=== PATIENT | female | born 1985 | race Caucasian/White ===

== ENCOUNTER → 2016-06-03 | Outpatient (CLI) | payer OTHER ==
--- NOTE | 2016-06-03 10:45 | US ---
June 03, [address] Bowden, Thank you for requesting consultation and a follow up ultrasound for your patient, Mrs. Era cardoso. As you know, Eli is a 31 year old G 2, P 1001 . Her due date is 08/05/16 by prior ultrasou nd. Her current gestational age based on this dating is is 31 weeks 0 days. She is seen today for a follow up ultrasound for Zika surveillance. She has had reassuring sonograms to date with negative serologic testing. ULTRASOUND Number of fetuses: 1 Placental location: Posterior presentation: Cephalic Heart Rate: 158 bpm Cervix: 4.5 cm viewed transabdominally Maximum Vertical Pocket: 5.6 cm Measurements: Biparietal diameter: 79 mm 31 weeks, 6 days Head circumference: 296 mm 32 weeks, 5 days Abdominal circumference: 266 mm 30 weeks, 5 days Femur length: 58 mm 30 weeks, 4 days Humerus length: 51 mm 29 weeks, 6 days Transcerebellar diameter: 38 mm 31 weeks, 2 days Average age by ultrasound: 31 weeks, 4 days Estimated weight: 1660 gm weight percentile: 34 % ANATOMY anatomy was previously assessed. Today the following structures were visualized and appeared n ormal: Profile, lip/nose views, cavum septum pellucidum, cerebellum, lateral ventricle, limited view s of the heart, stomach, bilateral kidneys, and bladder. IMPRESSION: 1. Intrauterine at 31 weeks, 0 days; SHARAN of 08/05/16. 2. growth is appropriate size for dates. 3. anatomy was previously assessed and today's ultrasound continues to provide reassurance of normal appearing anatomy. 4. Normal amniotic fluid volume RECOMMENDATIONS: I was pleased to review today's ultrasound with your patient. I reassured her that growth is normal at the 34 %ile for this gestational age. The amniotic fluid volume is normal. We performed a review of the anatomy which was limited by gestational age and position, but no overt abnormali ties were noted. Specifically, the biometry for the head and the appearance of the intracrania l structures remain normal. Given her reassuring testing to date and the normal serologic studies, I will leave future ultrasound surveillance to your discretion. Thank you for allowing us the opportunity to evaluate your patient. Should you have any further ques tions or concerns please do not hesitate to contact me. Approximately 15 minutes were spent with the patient and 10 minutes were spent in face to face consu ltation. Nafisa Walter MD Licensed Massage Practitioner Maternal Medicine Diagnosis Department of Obstetrics & Gynecology [facility]
--- NOTE | 2016-06-03 12:15 | US ---
Obstetric Ultrasound History: 31-year-old with estimated gestational age of 31 weeks 0 days and EDC of August 05, 2016, Zik a exposure. Comparison: OB ultrasound April 25, 2016. Findings: Number: 1 Presentation: Vertex Placental location: Posterior. No previa. Cervix: Closed, measuring 4.5 cm transabdominally Maximum vertical pocket: 5.6 cm Biometry: Biparietal diameter: 79 mm 31 weeks, 6 days Head circumference: 296 mm 32 weeks, 5 days Abdominal circumference: 266 mm 30 weeks, 5 days Femur length: 58 mm 30 weeks, 4 days Humerus length: 51 mm 29 weeks, 6 days Transcerebellar diameter: 38 mm 31 weeks, 2 days Average ultrasound age: 31 weeks, 4 days EDC based on today's average ultrasound age: August 01, 2016 Estimated weight is 1660 gms +/- 242 gms. The estimated weight percentile is 34 % based o n previous dating. Detailed anatomic survey was previously performed and is not repeated. heart rate is 158. The lateral ventricle, posterior fossa, four-chamber heart, outflow tracts, left-sided stomach, kid neys, and bladder are visualized and normal. Impression: 1. Living rojas . Size concordant with dates. 2. Unremarkable anatomy. Please see separate dictation for consultation performed by Nafisa Walter MD, the same day.
== END ==
LOC: FIMAGING 09:04
PROVIDERS: ATTEND Obstetrics & Gynecology
DX: Z03.79 Encounter for other suspected maternal and fetal conditions ruled out (principal); Z3A.31 31 weeks gestation of pregnancy

== ENCOUNTER → 2016-07-02 | Outpatient (CLI) | payer OTHER | LOC: FIMAGING 08:58 | PROVIDERS: ATTEND Obstetrics & Gynecology | DX: Z34.83 Encounter for supervision of other normal pregnancy, third trimester (principal); Z3A.35 35 weeks gestation of pregnancy; Z20.828 Contact with and (suspected) exposure to other viral communicable diseases ==

== ENCOUNTER 2016-08-04 20:00 | Inpatient (IN) | payer OTHER ==
--- NOTE | 2016-08-04 20:26 | PDGENHP ---
History and Physical - Chief Complaint contractions - History of Present Illness at 39w6d here for contractions. Initially started this AM, every 30 minutes , now every 4-5 minutes, painful. No LOF. Active baby. No VB. complicated by: THOM BURRELL [id number] 07/31/2016 08:29 AM Page: 05/14 Genetic screening Sequential screen negative, NT US normal. CF negative last . Travel to [place] Zika screening (DELIO) for patient was negative; 's screening negative. - Plan growth q4 weeks until delivery - normal 06/03/16 RH negative Rhogam given 05/22/16. Vaccines Flu shot given 02/19/16. Tdap given 06/07/16. Anemia HCT 32, repeat stable; RX iron 2x/day, folic acid, vit C Labor Plans natural labor or nitrous; delayed cord clamping. Labs notable for Rh neg, s/p Rhogam, HIV/HepB/RPR NR, GBS neg, urine cx neg, GC/ CT neg, Glucola = 102, Hgb = 12.5, plts 177K History Information - Allergies/Home Medication List Allergies/Adverse Reactions: No Known Allergies Allergy (Unverified 09/27/14 20:15) Home Medications: Sertraline HCl 09/27/14 [Last Taken Unknown] I have personally reviewed and updated: family history, medical history, social history, surgical history - Past Medical History no pertinent PMH Additional medical history: depression: currently stable off meds - Surgical History Reports: no pertinent surgical hx - Family History Positive for: non-pertinent - Social History Smoking Status: Never smoked Alcohol Use: None Drug Use: None Additional social history: here with her mom and her Ac. Prior baby 3.5 years old, born in [place] Review of Systems ROS: 10pt was reviewed & negative except for what was stated in HPI & below Physical Exam Physical Exam: 120/76, 76, 36.4 Gen: NAD, alert, awake Resp: unlabored CV: Reg rate Abd: gravid, soft, nontender, EFW 8# (last baby 7.5#) Ext: no edema SVE 4/60/-3/vtx/posterior/intact --> 2 hours later 7/70/-2/intact FHR baseline 140, mod alfonso, + accel, no decel [place]: q5 minutes Assessment & Plan Assessment: Active labor GBS neg status reassuring she is hoping for unmedicated delivery Plan: Expectant management Routine intrapartum care Plan Man CHAPMAN for intermittent monitoring Monitor closely for depression, will discuss restarting medication
[2016-08-04] MEDS ORDERED: LR 1,000 ML IV PRN (22:07)
[2016-08-04] MEDS ORDERED: LIDOCAINE 1% 30 ML SDV SC PRN (22:07)
[2016-08-04] MEDS ORDERED: OXYTOCIN/RINGERS LACTATE 1,000 ML IV PRN (22:07)
[2016-08-04] MEDS ORDERED: TERBUTALINE SULFATE 1 MG/ML VIAL IV PRN (22:07)
[2016-08-04] MEDS ORDERED: EPSOM SALT 454 GM TP PRN (22:07)
[2016-08-04] MEDS ORDERED: OLIVE OIL 118 ML BTL MISC PRN (22:07)
[2016-08-04 22:30] LABS: % IMMATURE GRANULYOCYTES 0.6 % (0.0-1.1); ABSOLUTE IMMATURE GRANULOCYTES 0.07 10^3/uL (0.00-0.10); ADD DIFF? NO; ADD MORPH? NO; ADD SCAN? NO; ATYPICAL LYMPHOCYTE FLAG 0 (0-99); FRAGMENT RBC FLAG 0 (0-99); HEMATOCRIT 36.9 % (38.0-47.0); HEMOGLOBIN 13.1 g/dL (12.6-16.3); LEFT SHIFT FLG 0 (0-99); LIPEMIA HEMOLYSIS FLAG 90 (0-99); MEAN CELL HEMOGLOBIN CONCENTR. 35.5 g/dL (32.4-36.7); MEAN CELL VOLUME 92.9 fL (81.5-99.8); PLATELET CLUMPS FLAG 0 (0-99); PLATELET COUNT 184 10^3/uL (150-400); RED BLOOD CELL COUNT 3.97 10^6/uL (4.18-5.33); RED CELL DISTRIBUTION WIDTH 12.7 % (11.5-15.2)
[2016-08-04] MEDS ORDERED: fentaNYL 2MCG/ML/BUP 0.1% RTU 100 ML BAG EP ONE (22:49)
[2016-08-04] MEDS ORDERED: fentaNYL 100 MCG/2 ML INJ ONE (22:49)
[2016-08-04] MEDS ORDERED: BUPIVACAINE 0.25% 30 ML SDV ONE (22:50)
[2016-08-04] MEDS ORDERED: PHENYLEPHRINE HCL 100 MCG/ML SYR ONE (22:50)
--- NOTE | 2016-08-05 00:01 | OBPROG ---
OBG Progress Note Assessment/Plan: Assessment: Active labor status reassuring Plan: Expectant management Plan 08/04/16 23:59 Subjective: More comfortable with epidural Objective: 08/04/16 22:15 VSS in tracevue Resting - SVE Dilation (cm): 9 Effacement (%): 100 Station: -1 Current Contraction Pattern: Regular FHR (bpm): 150 (tachycardia to 180s while epidural was being placed) FHR Pattern Variability: Moderate, Marked FHR Category: 1 Membranes: Intact ICD10 Worksheet Patient Problems: Problems Problem Status Onset Active labor at term Acute - ICD10 Problem Qualifiers (1) Active labor at term
[2016-08-05] MEDS ORDERED: NALOXONE HCL 0.4 MG/ML INJ IVP PRN (01:02)
[2016-08-05] MEDS ORDERED: PHENYLEPHRINE HCL 100 MCG/ML SYR IVP PRN (01:02)
--- NOTE | 2016-08-05 01:02 | PREANESOB ---
Obstetric Pre-Anesthesia Info - General Info Proposed Procedure: PARAM : 2 Para: 1 - Info Status: Full Term - Labor Status Cervical Dilation per last OB SVE: 9 Station per last OB SVE: -1 PIH: No Magnesium Sulfate in Use: No Indications for Labor Analgesia: Pain Control Labor Epidural: Yes Anesthesia Allergies/Adverse Reactions: Allergy/AdvReac Type Severity Reaction Status Date / Time No Known Allergies Allergy Unverified 09/27/14 20:15 Home Medications: Medication Instructions Recorded Sertraline HCl 09/27/14 Visit Medications: Generic Name Dose Route Start Last Admin Trade Name Freq PRN Reason Stop Dose Admin Lactated Ringer's 1,000 mls @ 0 mls/hr 08/04/16 22:07 Lr IV 01/31/17 22:06 PRN PRN SEE PROTOCOL CONDITIONS Protocol Per Protocol Oxytocin/Lactated Ringer's 1,000 mls @ 150 mls/hr 08/04/16 22:07 Pitocin 20 Units/Lr (Premix) IV PRN PRN Post- bleeding Ibuprofen 600 mg 08/04/16 22:07 Motrin PO 01/31/17 22:06 Q6HRS PRN post , inflammation Lidocaine HCl 30 ml 08/04/16 22:07 Lidocaine Hcl 1% SC 01/31/17 22:06 ONCE PRN Episiotomy Magnesium Sulfate 454 gm 08/04/16 22:07 Epsom Salt TP 01/31/17 22:06 PRN PRN perineal discomfort [place] Oil 118 ml 08/04/16 22:07 Sweet Oil MISC 01/31/17 22:06 ONCE PRN preneal massage Terbutaline Sulfate 0.25 mg 08/04/16 22:07 Brethine IV 01/31/17 22:06 ONCE PRN Tachysystole Discontinued Medications Generic Name Dose Route Start Last Admin Trade Name Freq PRN Reason Stop Dose Admin Bupivacaine HCl Confirm 08/04/16 22:50 Sensorcaine 0.25% Sdv Administered 08/04/16 22:51 Dose 30 ml .ROUTE .STK-MED ONE Fentanyl Confirm 08/04/16 22:49 Sublimaze Administered 08/04/16 22:50 Dose 100 mcg .ROUTE .STK-MED ONE Fentanyl/Bupivacaine HCl Confirm 08/04/16 22:49 Fentanyl/Bupivacaine/Ns 2 Mcg/Ml 0.1% (Premix Administered 08/04/16 22:50 Dose 100 ml EP .STK-MED ONE Phenylephrine HCl Confirm 08/04/16 22:50 Junior-Synephrine Administered 08/04/16 22:51 Dose 1,000 mcg .ROUTE .STK-MED ONE - Focused Exam Height/Weight (Nursing): Height 162.56 cm Weight 76.657 kg Labs: 08/04/16 22:15
[2016-08-05] MEDS ORDERED: LR 500 ML IV SCH (01:30)
[2016-08-05] MEDS ORDERED: fentaNYL 2MCG/ML/BUP 0.1% RTU 100 ML EP SCH (01:30)
--- NOTE | 2016-08-05 02:00 | OBPROG ---
OBG Progress Note Assessment/Plan: Assessment: Active labor AROM performed as no change in last 2 hours, clear fluid status reassuring Plan: Expectant management Start pushing soon Plan 08/04/16 23:59 08/05/16 01:59 Subjective: comfortable. not feeling pressure. OK with AROM Objective: 08/04/16 22:15 - SVE Dilation (cm): 9 Effacement (%): 100 Station: 0 Current Contraction Pattern: Regular FHR (bpm): 140 FHR Pattern Variability: Moderate FHR Category: 1 Membranes: AROM Amniotic Fluid Color: Clear ICD10 Worksheet Patient Problems: Problems Problem Status Onset Active labor at term Acute - ICD10 Problem Qualifiers (1) Active labor at term
--- NOTE | 2016-08-05 04:00 | OBPROC ---
- Labor and Delivery Onset of Contractions Date: 08/04/16 Onset of Contractions Type: Spontaneous Rupture of Membranes Date: 08/05/16 Rupture of Membranes Type: Artificial Amniotic Fluid Color: Clear Delivery Type: Spontaneous Placenta Delivery Date: 08/05/16 Episiotomy/Laceration: 2nd Degree Repair: 3-0 Complications: None - Medications Labor Augmentation/Induction Meds Used: None Anesthesia: Epidural - [place] Info Infant A Delivery Date: 08/05/16 Delivery Time: Sex of Infant: Female Score (1 Min): 9 Score (5 Min): 9 (AROM completed at 9 cm, clear fluid. Pt then felt pressure to push shortly thereafter, pushed for about 15 minutes and delivered a viable female in [place] presentation with compound posterior hand. No nuchal cord. Baby placed onto maternal abdomen. Delayed cord clamping x 3 minutes. Cord doubly clamped and cut by dad. IV pitocin 20 units started. Placenta delivered spontaneously with massage. Fundus firm. Small 2nd degree laceration repaired with 3-0 vicryl. Mom and baby in good condition, skin to skin, )
[2016-08-05] MEDS: IBUPROFEN 600 MG TAB PO PRN ×4 (04:05→21:49)
[2016-08-05] MEDS ORDERED: SIMETHICONE 80 MG TAB CHEW PO PRN (06:43)
[2016-08-05] MEDS ORDERED: HYDROCODONE/APAP 5/325 TAB PO PRN (06:43)
[2016-08-05] MEDS ORDERED: HYDROCORTISONE 0.5% CREAM TP PRN (06:43)
[2016-08-05] MEDS: DOCUSATE SODIUM 100 MG CAP PO PRN (09:56)
[2016-08-05 15:42] VITALS: RESP 16
[2016-08-06] MEDS: IBUPROFEN 600 MG TAB PO PRN ×3 (03:27→19:17)
--- NOTE | 2016-08-06 07:54 | SOAPPROG ---
SOAP Progress Note Assessment/Plan: Assessment: 31 y.o. female s/p PPD#1. Recovering well with good pain control. . Plan: Routine orders. consult PRN. Anticipate discharge to home tomorrow. 08/06/16 07:51 Subjective: Reports feeling well with good pain control and minimal vaginal bleeding. Eating and drinking well without nausea or vomiting. infant. Has been out of bed and ambulating without vertigo. Appropriate mood with good support system. Objective: Vital Signs Temp Pulse Resp BP Pulse Ox 36.8 C 84 16 105/68 95 08/05/16 20:00 08/05/16 20:00 08/05/16 20:00 08/05/16 20:00 08/05/16 20:00 Laboratory Results 08/04/16 22:15 08/05/16 08/06/16 08/07/16 05:59 05:59 05:59 Output Total 250 Balance -250 - Time Spent With Patient Time Spent With Patient: 20 minutes - Pending Discharge Pending Discharge Within 24 Hours: Yes Pending Discharge Date: 08/07/16 Pending Discharge Time: 11:00 Physical Exam - Physical Exam General Appearance: WD/WN, alert, no apparent distress EENT: normal ENT inspection Neck: non-tender, full range of motion, normal inspection Respiratory: lungs clear, normal breath sounds Cardiac/Chest: regular rate, rhythm Abdomen: non-tender, soft Pelvic Exam: normal external exam Rectal: deferred Back: Normal inspection Skin: normal color, warm/dry Extremities: normal range of motion, non-tender Neuro/Psych: alert, normal mood/affect, oriented x 3 ICD10 Worksheet Patient Problems: Problems Problem Status Onset Active labor at term Acute
[2016-08-06] MEDS: DOCUSATE SODIUM 100 MG CAP PO PRN (13:05)
[2016-08-07] MEDS: IBUPROFEN 600 MG TAB PO PRN (01:04)
[2016-08-07] MEDS: DOCUSATE SODIUM 100 MG CAP PO PRN (01:04)
[2016-08-07 08:09] VITALS: BP 112/79; PULSE 68; TEMP 98.1; O2SAT 97
--- NOTE | 2016-08-07 08:20 | OBGCSDC ---
General Delivery Information - General Info : 2 Para: 2 Delivery Date: 08/05/16 Delivery Time: 03:27 Delivery Physician/CNM: Altagracia Solano Admission Date: 08/04/16 Labs: Patient ABO/Rh O NEGATIVE 08/05/16 05:00 Hct 36.9 % (38.0-47.0) L 08/04/16 22:15 - [place] Info A Sex of : Female Score (1 Min): 9 Score (5 Min): 9 (AROM completed at 9 cm, clear fluid. Pt then felt pressure to push shortly thereafter, pushed for about 15 minutes and delivered a viable female in KR[place] presentation with compound posterior hand. No nuchal cord. Baby placed onto maternal abdomen. Delayed cord clamping x 3 minutes. Cord doubly clamped and cut by dad. IV pitocin 20 units started. Placenta delivered spontaneously with massage. Fundus firm. Small 2nd degree laceration repaired with 3-0 vicryl. Mom and baby in good condition, skin to skin, ) Vaginal - Diagnosis IUP (Weeks): 40 Labor: Spontaneous Rupture of Membranes Type: Artificial Amniotic Fluid Color: Clear Laceration: 2nd Degree Repair: 3-0 Complications: None - Operations/Procedures Delivery Type: Spontaneous Procedures: Amniotomy Anesthesia: Epidural - Delivery Anesthesia: Epidural Discharge Information - Discharge Information Discharge Medications: Ibuprofen, Vitamins, Vicodin Condition: Good Instruction/Follow Up: Six Weeks Discharge Physician/CNM: Bella Hoffman Discharge Date: 08/07/16 Dictated: No
== END 2016-08-07 13:01 | disposition home or self-care (01) | DRG 775 ==
LOC: FLD 20:00 → FOB 08-05 05:38
PROVIDERS: ADMIT Obstetrics & Gynecology; ATTEND Obstetrics & Gynecology
DX: O70.1 Second degree perineal laceration during delivery (principal); Z37.0 Single live birth; Z3A.40 40 weeks gestation of pregnancy
CPT/HCPCS: J2370; J3010